=== PATIENT | male | born 1965 | race American Indian/Alaskan Native ===

== ENCOUNTER 2019-05-18 21:59 | Emergency (ER) | payer OTHER ==
[2019-05-19] MEDS ORDERED: oxyCODONE /ACETAMINOPHEN 5-325MG TAB PO ONE (04:46)
[2019-05-19] MEDS ORDERED: KETOROLAC 30 MG/1 ML INJ IM ONE (04:46)
[2019-05-19] MEDS ORDERED: ONDANSETRON 4 MG ODT TAB PO ONE (04:47)
--- NOTE | 2019-05-19 06:08 | Emergency Department Report ---
ED General Adult HPI - General Chief complaint: Skin Rash Stated complaint: FEVER/RASH Source: patient Mode of arrival: Ambulatory Limitations: No Limitations - History of Present Illness Initial comments: Patient is a 54-year-old -[place] male with a history of hypertension and [id number] diabetes who presents to the ED with complaint of acute onset persistent severely painful erythematous vesicular rash in the left upper quadrant area that extends to the left posterior midthoracic area in a dermatomal pattern for the last 3 days. Patient states that the pain has been worsening in the last 12 hours especially because he cannot sleep because of your pain. Patient denies dizziness, nausea, vomiting, fever, chills, cough, traumatic injury, chest pain or shortness of breath, diarrhea, dysuria, heavy lifting or traumatic injury. MD Complaint: Severely painful erythematous rash in the left upper quadrant extending to -: Sudden, days(s) (3) Location: back, abdomen (upper abdomen radiating to the left posterior thoracic area) Radiation: back (mid posterior thoracic area) Severity scale (0 -10): 7 Quality: burning, aching, sharp Consistency: constant Improves with: none Worsens with: none Associated Symptoms: denies other symptoms, rash (erythematous severely painful swollen rash in the left upper quadrant radiating to the left posterior midthoracic area). denies: confusion, chest pain, cough, diaphoresis, fever/chills, headaches, loss of appetite, malaise, nausea/vomiting, seizure - Related Data Previous Rx's Medication Instructions Recorded Last Taken Type Gabapentin 300 mg PO Q8HR #30 capsule 05/19/19 Unknown Rx Ibuprofen [Motrin] 800 mg PO Q8HR PRN #30 tablet 05/19/19 Unknown Rx Oxycodone HCl/Acetaminophen 1 each PO Q6HR PRN #12 tablet 05/19/19 Unknown Rx [Percocet 7.5/325 mg] Valacyclovir HCl [Valtrex] 1,000 mg PO Q8H #30 tablet 05/19/19 Unknown Rx Allergies Allergy/AdvReac Type Severity Reaction Status Date / Time No Known Allergies Allergy Verified 05/18/19 22:19 ED Review of Systems ROS: Stated complaint: FEVER/RASH Other details as noted in HPI Constitutional: denies: chills, fever Eyes: denies: eye pain, eye discharge, vision change ENT: denies: ear pain, throat pain Respiratory: denies: cough, shortness of breath, wheezing Cardiovascular: denies: chest pain, palpitations Endocrine: no symptoms reported Gastrointestinal: abdominal pain (diffuse left lateral and upper abdominal wall pain due to a vesicular painful rash). denies: nausea, vomiting, diarrhea Genitourinary: denies: urgency, dysuria Musculoskeletal: denies: back pain, joint swelling, arthralgia Skin: rash (Erythematous maculopapular vesicular painful rash on the left upper abdomen), pruritus. denies: lesions Neurological: denies: headache, weakness, paresthesias Psychiatric: denies: anxiety, depression Hematological/Lymphatic: denies: easy bleeding, easy bruising ED Past Medical Hx - Past Medical History Previous Medical History?: Yes Hx Hypertension: Yes Hx Diabetes: Yes - Surgical History Past Surgical History?: No - Social History Smoking Status: Never Smoker Substance Use Type: None - Medications Home Medications: Home Medications Medication Instructions Recorded Confirmed Last Taken Type Gabapentin 300 mg PO Q8HR #30 capsule 05/19/19 Unknown Rx Ibuprofen [Motrin] 800 mg PO Q8HR PRN #30 tablet 05/19/19 Unknown Rx Oxycodone HCl/Acetaminophen 1 each PO Q6HR PRN #12 tablet 05/19/19 Unknown Rx [Percocet 7.5/325 mg] Valacyclovir HCl [Valtrex] 1,000 mg PO Q8H #30 tablet 05/19/19 Unknown Rx ED Physical Exam - General Limitations: No Limitations General appearance: alert, in no apparent distress - Head Head exam: Present: atraumatic, normocephalic - Eye Eye exam: Present: normal appearance, PERRL, EOMI Pupils: Present: normal accommodation - ENT ENT exam: Present: normal exam, normal orophraynx, mucous membranes moist, TM's normal bilaterally, normal external ear exam - Neck Neck exam: Present: normal inspection, full ROM - Respiratory Respiratory exam: Present: normal lung sounds bilaterally. Absent: respiratory distress, wheezes, rales, rhonchi, chest wall tenderness - Cardiovascular Cardiovascular Exam: Present: regular rate, normal rhythm, normal heart sounds. Absent: systolic murmur, diastolic murmur, rubs, gallop - GI/Abdominal GI/Abdominal exam: Present: soft, tenderness (Palpable severe diffuse upper abdominal wall tenderness from epigastric area to posterior left mid thoracic area due to erythematous severely tender vesicular dermatomal rash), normal bowel sounds. Absent: guarding, rebound, hyperactive bowel sounds, hypoactive bowel sounds, organomegaly - Extremities Exam Extremities exam: Present: normal inspection, full ROM, normal capillary refill. Absent: pedal edema, joint swelling - Back Exam Back exam: Present: normal inspection, full ROM. Absent: tenderness, CVA tenderness (R), muscle spasm, paraspinal tenderness - Neurological Exam Neurological exam: Present: alert, oriented X3, CN II-XII intact, normal gait, reflexes normal - Psychiatric Psychiatric exam: Present: normal affect, normal mood - Skin Skin exam: Present: warm, dry, intact, normal color, rash (Erythematous maculopapular vesicular dermatomal rash on the left upper quadrant extending to the posterior left midthoracic area), erythema, vesicles ED Course Vital Signs 05/18/19 05/19/19 22:20 02:13 Temperature 99.7 F H 99.4 F Pulse Rate 85 79 Respiratory 18 16 Rate Blood Pressure 158/82 168/84 O2 Sat by Pulse 98 98 Oximetry ED Medical Decision Making - Medical Decision Making This is a 54-year-old male who presented to the ED with complaint of acute onset persistent severely painful erythematous maculopapular vesicular rash on left upper quadrant area that radiates to the left mid posterior thoracic area in a dermatomal pattern for the last 3 days. Patient states that he has not been able to sleep because of severe pain. In the ED, patient is alert and oriented x3 and is not in any distress with normal vital signs. Patient was treated for pain and on reevaluation, patient pain is well controlled with medications. Based on the physical exam findings and history, patient's symptoms are likely due to acute shingles outbreak. Patient was discharged home on pain medications and antiviral medication Valtrex. Patient was advised to follow-up with his primary care physician in 5 to 7 days for reevaluation or return to the ED immediately if symptoms get worse. - Differential Diagnosis shingles; cellulitis; insect bite; allergic reaction; muscle strain Critical care attestation.: If time is entered above; I have spent that time in minutes in the direct care of this critically ill patient, excluding procedure time. ED Disposition Clinical Impression: Abdominal wall pain Shingles outbreak Qualifiers: Herpes zoster complications: without complications Qualified Code(s): B02.9 - Zoster without complications Disposition: DC-01 TO HOME OR SELFCARE Is pt being admited?: No Does the pt Need Aspirin: No Condition: Stable Instructions: Herpes Zoster (ED), Itchy Skin (ED) Additional Instructions: Take medication with food, drink plenty fluids and follow-up with your primary care physician in 5 to 7 days for reevaluation. Return to the ED immediately if symptoms get worse. Prescriptions: Gabapentin 300 mg PO Q8HR #30 capsule Ibuprofen [Motrin] 800 mg PO Q8HR PRN #30 tablet PRN Reason: Pain , Severe (7-10) Oxycodone HCl/Acetaminophen [Percocet 7.5/325 mg] 1 each PO Q6HR PRN #12 tablet PRN Reason: Pain Valacyclovir HCl [Valtrex] 1,000 mg PO Q8H #30 tablet Referrals: [facility] [Outside] - 3-5 Days Forms: Work/School Release Form(ED) Time of Disposition: 06:05 Print Language: IRAQI
[2019-05-19 06:15] VITALS: BP 143/77
== END 2019-05-19 06:04 | disposition home or self-care (01) ==
LOC: ED 21:59
DX: B02.9 Zoster without complications (principal); R10.12 Left upper quadrant pain; I10 Essential (primary) hypertension; E11.9 Type 2 diabetes mellitus without complications; Z79.899 Other long term (current) drug therapy
CPT/HCPCS: 96372; 99282; J1885; Q0162

== ENCOUNTER 2019-05-31 18:05 | Emergency (ER) | payer OTHER ==
[2019-05-31 18:12] VITALS: BP 179/87
--- NOTE | 2019-05-31 19:59 | Emergency Department Report ---
Chief Complaint: Abdominal Pain Stated Complaint: STOMACH PAIN Time Seen by Provider: 05/31/19 19:39 - HPI History of Present Illness: 54 y/o male comes in for post herpatic pain from shingles. Patient was diagnosed earlier this morn for shingle of his left abdomen. Patient has not followed up with a PCP. Patient is currently on 300mg of Gabapentin bid. No N/V or diarrhea. No fevers. - Exam Vital Signs: Vital Signs 05/31/19 18:10 Temperature 97.9 F Pulse Rate 73 Respiratory 15 Rate Blood Pressure 179/87 [Right] O2 Sat by Pulse 99 Oximetry Physical Exam: Axo times 3 NAD Skin left flank and abdomen pain healed scared from shingles lesions. Pain with light palpation. Ambulating without difficulties. MSE screening note: Focused history and physical exam performed. Due to findings the following was ordered: 54 y/o male comes in for post herpatic pain from shingles. Patient was diagnosed earlier this morn for shingle of his left abdomen. Patient has not followed up with a PCP. Patient is currently on 300mg of Gabapentin bid. No N/V or diarrhea. No fevers. Recommend to increase his Gabapentin to 600mg bid and to follow up with a Primary Care Provider ED Disposition for MSE Clinical Impression: Abdominal wall pain, Shingles outbreak Disposition: MED SCREENING EXAM-LEFT Is pt being admited?: No Does the pt Need Aspirin: No Condition: Stable Additional Instructions: Recommend to increase his Gabapentin to 600mg bid and to follow up with a Primary Care Provider Referrals: MAXIMILIANO COTTER MD [Primary Care Provider] - 3-5 Days ASHU PHELPS MD [Staff Physician] - 3-5 Days [facility] [Provider Group] - 3-5 Days Forms: Work/School Release Form(ED)
== END 2019-05-31 20:31 | disposition left against medical advice (07) ==
LOC: ED 18:05
DX: B02.9 Zoster without complications (principal); R10.9 Unspecified abdominal pain
CPT/HCPCS: 99282

== ENCOUNTER 2021-07-31 18:16 | Emergency (ER) | payer SELFPAY ==
[2021-07-31 19:14] VITALS: BP 168/88
--- NOTE | 2021-08-01 12:29 | Electrocardiograph Report ---
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
== END 2021-08-01 05:00 | disposition left against medical advice (07) ==
LOC: ED 18:16
DX: R42 Dizziness and giddiness (principal); Z53.21 Procedure and treatment not carried out due to patient leaving prior to being seen by health care provider
CPT/HCPCS: 93005